=== PATIENT | female | born 1995 | race Caucasian/White ===

== ENCOUNTER 2019-04-11 15:52 | Emergency (ER) | payer MEDICAID ==
[~2019-04-11] VITALS: Ht 172.7 cm; Wt 110.2 kg
[2019-04-11 16:15] VITALS: BP 120/75
[2019-04-12] MEDS ORDERED: SOFTSOL XX (17:15)
[2019-04-12] MEDS ORDERED: PREN-96 PO (17:15)
[2019-04-12] MEDS ORDERED: HYDR250I6 IM (19:00)
[2019-04-12] MEDS ORDERED: URSO300C4 PO (19:01)
== END 2019-04-11 17:12 | disposition home or self-care (01) ==
LOC: ER 15:52
DX: O26.893 Other specified pregnancy related conditions, third trimester (principal); R10.30 Lower abdominal pain, unspecified; O21.9 Vomiting of pregnancy, unspecified; K21.9 Gastro-esophageal reflux disease without esophagitis; Z3A.34 34 weeks gestation of pregnancy

== ENCOUNTER 2019-04-12 15:15 | Observation (INO) | payer MEDICAID ==
[2019-04-12] MEDS ORDERED: SOFTSOL XX (17:15)
[2019-04-12] MEDS ORDERED: PREN-96 PO (17:15)
[2019-04-12] MEDS ORDERED: HYDR250I6 IM (19:00)
[2019-04-12] MEDS ORDERED: URSO300C4 PO (19:01)
== END 2019-04-12 16:40 | disposition home or self-care (01) | DRG 566 ==
LOC: LDRP 15:15
PROVIDERS: ADMIT Specialist; ATTEND Specialist
DX: O99.713 Diseases of the skin and subcutaneous tissue complicating pregnancy, third trimester (principal); R21 Rash and other nonspecific skin eruption; Z3A.34 34 weeks gestation of pregnancy; Z88.8 Allergy status to other drugs, medicaments and biological substances
CPT/HCPCS: 59025; 81002; G0378

== ENCOUNTER 2019-04-19 10:50 | Observation (INO) | payer MEDICAID ==
[~2019-04-19 10:50] MED LIST: HYDR250I6 IM; PREN-96 PO; URSO300C4 PO
== END 2019-04-19 13:00 | disposition home or self-care (01) | DRG 566 ==
LOC: LDRP 10:50
PROVIDERS: ADMIT Obstetrics & Gynecology; ATTEND Obstetrics & Gynecology
DX: O40.3XX0 Polyhydramnios, third trimester, not applicable or unspecified (principal); O26.893 Other specified pregnancy related conditions, third trimester; R51 Headache; R11.0 Nausea; Z3A.35 35 weeks gestation of pregnancy; Z91.048 Other nonmedicinal substance allergy status
CPT/HCPCS: 59025; 76818; 81002; 82962; G0378

== ENCOUNTER 2019-04-21 18:20 | Observation (INO) | payer MEDICAID ==
[~2019-04-21] VITALS: Ht 172.7 cm; Wt 110.2 kg
[2019-04-25] MEDS ORDERED: URSO300C9 PO (16:09)
== END 2019-04-21 20:05 | disposition home or self-care (01) | DRG 566 ==
LOC: LDRP 18:20
PROVIDERS: ADMIT Obstetrics & Gynecology; ATTEND Obstetrics & Gynecology
DX: O99.89 Other specified diseases and conditions complicating pregnancy, childbirth and the puerperium (principal); R21 Rash and other nonspecific skin eruption; O26.893 Other specified pregnancy related conditions, third trimester; R51 Headache; O21.2 Late vomiting of pregnancy; Z3A.35 35 weeks gestation of pregnancy
CPT/HCPCS: 59025; 76818; 81002; G0378

== ENCOUNTER 2019-04-28 08:22 | Observation (INO) | payer MEDICAID ==
[~2019-04-28 08:22] MED LIST changes: -HYDR250I6 IM; -URSO300C4 PO; +URSO300C9 PO
[2019-05-12] MEDS ORDERED: PREN-96 PO (08:29)
== END 2019-04-28 14:47 | disposition home or self-care (01) | DRG 566 ==
LOC: LDRP 12:30
PROVIDERS: ADMIT Obstetrics & Gynecology; ATTEND Obstetrics & Gynecology
DX: O26.613 Liver and biliary tract disorders in pregnancy, third trimester (principal); K83.1 Obstruction of bile duct; O99.713 Diseases of the skin and subcutaneous tissue complicating pregnancy, third trimester; R21 Rash and other nonspecific skin eruption; O99.613 Diseases of the digestive system complicating pregnancy, third trimester; K21.9 Gastro-esophageal reflux disease without esophagitis; Z3A.36 36 weeks gestation of pregnancy
CPT/HCPCS: 59025; 76818; 81002; G0378

== ENCOUNTER 2019-05-02 09:32 | Observation (INO) | payer MEDICAID ==
[2019-05-02 16:33] LABS: Albumin 2.6 g/dL (3.4-5.0); BUN/Creatinine Ratio 8.8; Calcium 8.5 mg/dL (8.5-10.1); Potassium 4.1 mmol/L (3.5-5.1)
[2019-05-02 16:36] LABS: Bilirubin, Total 0.1 mg/dL (0.2-1.0); Total Protein 6.8 g/dL (6.4-8.2)
== END 2019-05-02 16:07 | disposition home or self-care (01) | DRG 566 ==
LOC: LDRP 14:10
PROVIDERS: ADMIT Specialist; ATTEND Specialist
DX: O26.613 Liver and biliary tract disorders in pregnancy, third trimester (principal); K83.1 Obstruction of bile duct; Z3A.36 36 weeks gestation of pregnancy; Z91.048 Other nonmedicinal substance allergy status
CPT/HCPCS: 36415; 59025; 76818; 80053; 81002; G0378

== ENCOUNTER 2019-05-05 10:23 | Observation (INO) | payer MEDICAID ==
[~2019-05-05 10:23] MED LIST changes: -PREN-96 PO
== END 2019-05-05 12:54 | disposition home or self-care (01) | DRG 566 ==
LOC: LDRP 10:23
PROVIDERS: ADMIT Specialist; ATTEND Specialist
DX: O40.3XX0 Polyhydramnios, third trimester, not applicable or unspecified (principal); K83.1 Obstruction of bile duct; O26.613 Liver and biliary tract disorders in pregnancy, third trimester; O26.893 Other specified pregnancy related conditions, third trimester; L29.9 Pruritus, unspecified; Z3A.37 37 weeks gestation of pregnancy
CPT/HCPCS: 59025; 76818; 81002; G0378

== ENCOUNTER 2019-05-07 10:00 | Observation (INO) | payer MEDICAID ==
[2019-05-07 11:34] LABS: Albumin 2.3 g/dL (3.4-5.0); BUN/Creatinine Ratio 9.9; Potassium 4.2 mmol/L (3.5-5.1)
[2019-05-07 11:39] LABS: Bilirubin, Total 0.1 mg/dL (0.2-1.0); Calcium 7.5 mg/dL (8.5-10.1); Total Protein 6.8 g/dL (6.4-8.2)
== END 2019-05-07 13:32 | disposition home or self-care (01) | DRG 566 ==
LOC: LDRP 10:00
PROVIDERS: ADMIT Specialist; ATTEND Specialist
DX: O26.613 Liver and biliary tract disorders in pregnancy, third trimester (principal); K83.1 Obstruction of bile duct; Z3A.37 37 weeks gestation of pregnancy
CPT/HCPCS: 36415; 76818; 80053; G0378; 59025; 81002

== ENCOUNTER 2019-05-09 08:00 | Inpatient (IN) | payer MEDICAID | END 2019-05-12 09:08 | disposition home or self-care (01) | LOC: LDRP 08:00 | PROC: 10E0XZZ Delivery of Products of Conception, External Approach (ICD-10-PCS; principal; ~2019-05-09) | PROC: 0UQG7ZZ Repair Vagina, Via Natural or Artificial Opening (ICD-10-PCS; ~2019-05-09) | DX: O26.613 Liver and biliary tract disorders in pregnancy, third trimester (principal); K83.1 Obstruction of bile duct; Z3A.37 37 weeks gestation of pregnancy; Z37.0 Single live birth ==

== ENCOUNTER 2019-05-18 17:26 | Emergency (ER) | payer MEDICAID ==
[~2019-05-18] VITALS: Ht 172.7 cm; Wt 103.5 kg
[~2019-05-18 17:26] MED LIST changes: +PREN-96 PO
[2019-05-18 17:33] VITALS: BP 131/82
[2019-05-18] MEDS ORDERED: ACETAMINOPHEN 325 MG TAB PO ONE (17:45)
[2019-05-18 19:01] LABS: Basophils # (auto) 0.1 uL; Basophils % (auto) 0.6 % (0.0-2.0); Eosinophils # (auto) 0.1 uL; Eosinophils % (auto) 1.3 % (0.0-7.0); Hematocrit 34.4 % (36.0-46.0); Hemoglobin 11.4 g/dL (12.2-16.2); Lymphocytes # (auto) 0.9 uL; Lymphocytes % (auto) 8.3 % (10.0-50.0); Mean Corpuscular Hemoglobin 29.8 pg (28.0-32.0); Mean Corpuscular Hgb Conc. 33.2 g/dL (32.0-36.0); Mean Corpuscular Volume 89.9 fL (80.0-100.0); Monocytes # (auto) 0.7 uL; Monocytes % (auto) 6.9 % (0.0-12.0); Neutrophils # (auto) 8.6 uL; Neutrophils % (auto) 82.9 % (37.0-80.0); Platelet Count (auto) 304 10^3/uL (140-450); Red Blood Cells 3.83 10^6/uL (4.0-5.20); Red Cell Distribution Width 14.5 % (11.8-14.3); White Blood Cell 10.4 10^3/uL (4.4-10.8)
[2019-05-18 19:20] LABS: Urine Bacteria NONE SEEN /hpf (None Seen); Urine Blood 3+ /uL (Negative); Urine Specific Gravity 1.005 (1.001-1.035); Urine WBC 73 /hpf (0 - 5)
[2019-05-18 19:27] LABS: Albumin 3.3 g/dL (3.4-5.0); BUN/Creatinine Ratio 11.6; Calcium 8.7 mg/dL (8.5-10.1); Potassium 3.9 mmol/L (3.5-5.1)
[2019-05-18 19:29] LABS: Bilirubin, Total 0.3 mg/dL (0.2-1.0)
== END 2019-05-18 22:44 | disposition left against medical advice (07) ==
LOC: ER 17:26
DX: R50.9 Fever, unspecified (principal); R51 Headache; Z53.21 Procedure and treatment not carried out due to patient leaving prior to being seen by health care provider
CPT/HCPCS: 36415; 80053; 81001; 85025